=== PATIENT | female | born 2000 | race Caucasian/White ===

== ENCOUNTER 2024-06-21 07:57 | Emergency (ER) | payer BC, SELFPAY ==
[2024-06-21 07:58] VITALS: BP 145/107
--- NOTE | 2024-06-21 08:13 | ED.GENMED ---
History of Present Illness
<Nikolas Jordan PA-C - Last Filed: 06/21/24 14:58>
General
Chief Complaint: Withdrawal Symptoms
Source: patient
Exam Limitations: none
Time Seen by Provider: 06/21/24 08:06
History of Present Illness
History of Present Illness:
23-year-old female presents in possible alcohol withdrawal. She states she is very agitated to getting the shakes she is not sleeping she getting confused. She was drinking up to a handle of vodka every 2 days. Last drink was more than 24 hours
ago. She admits to occasional using marijuana as well. She is interested in getting help with her withdrawal. She is not sure about going to rehab. Recently saw a psychiatrist who started on naltrexone which her first dose was last night as well
as Lexapro.
Phy Exam
<Nikolas Jordan PA-C - Last Filed: 06/21/24 14:58>
Physical Exam
Physical Exam:
General: Well-appearing female no acute respiratory distress
HEENT: Normocephalic mucosa moist neck is supple
Heart: Regular rate and rhythm
Lungs: Clear no wheeze
Neurologic exam: Alert and oriented mild tremor noted good muscle tone conversing appropriately
Abdomen is soft nontender nondistended
Course
<Nikolas Jordan PA-C - Last Filed: 06/21/24 14:58>
Orders/Labs/Results
Orders:
Orders
06/21/24 08:03
Crisis Consult Urgent
Reason for Consult: SI, increased depression
06/21/24 08:12
0.9% Sodium Chloride 1000 ml [Nss] 1,000 ml IV BOLUS
Lorazepam [Ativan] 1 mg IV NOW STA
06/21/24 08:28
Alcohol Urgent
Complete Blood Count/With Diff Urgent
Comprehensive Metabolic Panel Urgent
Abnormal Lab Results
06/21/24
08:28
RBC 3.76 L 10^6/uL
(4.20-5.40)
MCV 99.7 H fL
(81.0-99.0)
MCH 35.6 H pg
(27.0-31.0)
AST 69 H U/L
(14-36)
ALT 41 H U/L
(0-35)
06/21/24 08:28
06/21/24 08:28
Vital Signs
Initial and Last Documented VS:
Initial Vital Signs
Temp Pulse Resp BP Pulse Ox
98.4 F 82 18 145/107 97
06/21/24 07:58 06/21/24 07:58 06/21/24 07:58 06/21/24 07:58 06/21/24 07:58
Last Documented Vital Signs
Temp Pulse Resp BP Pulse Ox
98.4 F 62 16 114/94 94
06/21/24 07:58 06/21/24 10:45 06/21/24 10:45 06/21/24 10:00 06/21/24 10:45
<Hesham Spear, DO - Last Filed: 06/21/24 10:58>
Orders/Labs/Results
Orders:
Orders
06/21/24 08:03
Crisis Consult Urgent
Reason for Consult: SI, increased depression
06/21/24 08:12
0.9% Sodium Chloride 1000 ml [Nss] 1,000 ml IV BOLUS
Lorazepam [Ativan] 1 mg IV NOW STA
06/21/24 08:28
Alcohol Urgent
Complete Blood Count/With Diff Urgent
Comprehensive Metabolic Panel Urgent
Abnormal Lab Results
06/21/24
08:28
RBC 3.76 L 10^6/uL
(4.20-5.40)
MCV 99.7 H fL
(81.0-99.0)
MCH 35.6 H pg
(27.0-31.0)
AST 69 H U/L
(14-36)
ALT 41 H U/L
(0-35)
06/21/24 08:28
06/21/24 08:28
Vital Signs
Initial and Last Documented VS:
Initial Vital Signs
Temp Pulse Resp BP Pulse Ox
98.4 F 82 18 145/107 97
06/21/24 07:58 06/21/24 07:58 06/21/24 07:58 06/21/24 07:58 06/21/24 07:58
Last Documented Vital Signs
Temp Pulse Resp BP Pulse Ox
98.4 F 62 16 114/94 94
06/21/24 07:58 06/21/24 10:45 06/21/24 10:45 06/21/24 10:00 06/21/24 10:45
<Nikolas Jordan PA-C - Last Filed: 06/21/24 14:58>
MDM/Problems Addressed
Differential Diagnosis Includes:
Patient with recent heavy alcohol use. Last drink was more than 24 hours ago and may be developing withdrawal symptoms. Vital signs are currently stable but does appear quite agitated and anxious. She is slightly tremulous. Will check labs.
Hydrate and give Ativan. Parents are in the room. Offered her help through [facility] [place] however she is not sure she wants to get
<Nikolas Jordan PA-C - Last Filed: 06/21/24 14:58>
*Critical Care Note
Total Time (30-74mins, 75-104mins- exclusive of procedures): Not Applicable
ED Attending Note
<Nikolas Jordan PA-C - Last Filed: 06/21/24 14:58>
-
Portions of this chart may have been created with voice recognition software.� Occasional wrong word or��sound alike� substitutions may have occurred due to the inherent limitations of voice recognition software.
<Hesham Spear DO - Last Filed: 06/21/24 10:58>
ED Attending Note
Patient seen and examined by attending physician: Yes
I performed the substantive portion of visit, reviewed & personally made and approve the management plan that is documented in note by myself or MESFIN.: Yes
ED Attending Note:
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
encouraged not to drink alcohol while using naltrexone she has a psychiatrist in [place], patient and mother asking about prescription for Ativan which seems to work for her here
Discharge Plan
Departure
Patient Disposition: Home (Routine Discharge)
Date of Disposition: 06/21/24
Time of Disposition: 10:59
Patient with high blood pressure during this ER visit?: No
Condition: Good
Covid-19: Not Applicable
Discharge Problem:
Alcohol abuse
Instructions: Alcohol Use Disorder (DC)
Prescriptions:
New
lorazepam [Ativan] 0.5 mg tablet
0.5 mg PO HS PRN (Reason: anxiety) Qty: 10 0RF
Referrals:
Dariana Lowe DO [Family Provider] -
Activity Restrictions/Additional Instructions:
Do not drink alcohol while taking naltrexone
Take your medications as prescribed by your psychiatrist
Interventions
Interventions:
*Risk Screen - Suicide Last Done: 06/21/24 07:58
*General Assessment Last Done: 06/21/24 07:58
*Neglect/Abuse Screening Last Done: 06/21/24 07:58
ED- Fall Risk Assessment Last Done: 06/21/24 08:23
*ED COVID-19 Vaccine History Last Done: 06/21/24 08:23
*Nursing Disposition Last Done: 06/21/24 11:04
ED- Neurological Assessment Last Done: 06/21/24 08:23
ED-Psychological Assessment Last Done: 06/21/24 08:23
Discharge Date and Time
Discharge Date/Time: 06/21/24 11:08
Print Language: [facility]
[2024-06-21 08:21] VITALS: BMI 21.4
[2024-06-21 08:23] VITALS: BP 126/94
[2024-06-21] MEDS: ATIVAN 1 MG IV (08:28)
[2024-06-21] MEDS: NSS 1000 IV (08:30)
[2024-06-21 08:37] LABS: % Basophils 0.9 % (0-2); % Eosinophils 0.7 % (0-6); % Immature Granulocytes 0.4 % (0-0.5); % Lymphocytes 36.2 % (20.5-51.1); % Monocytes 6.9 % (1.7-9.3); % Neutrophils 54.9 % (42.2-75.2); Absolute Basophils 0.1 10^3/uL (0-0.2); Absolute Lymphocytes 2.1 10^3/uL (1.2-3.4); Absolute Monocytes 0.4 10^3/uL (0.1-0.6); Absolute Neutrophils 3.1 10^3/uL (1.4-6.5); Hematocrit 37.5 % (37.0-47.0); Hemoglobin 13.4 g/dL (12.0-16.0); Mean Corp Hgb Conc. 35.7 g/dL (33.0-37.0); Mean Corpuscular Hgb 35.6 pg (27.0-31.0); Mean Corpuscular Volume 99.7 fL (81.0-99.0); Mean Platelet Volume 9.8 fL (7.4-10.4); Nucleated Red Blood Cells % 0 %; Platelet Count 147 10^3/uL (130-400); Red Blood Cell Count 3.76 10^6/uL (4.20-5.40); Red Cell Dist. Width 12.6 % (11.5-14.5); White Blood Cell Count 5.7 10^3/uL (4.8-10.8)
[2024-06-21 09:00] VITALS: BP 120/98
[2024-06-21 09:05] LABS: ALT (SGPT) 41 U/L (0-35); AST (SGOT) 69 U/L (14-36); Albumin 4.5 g/dl (3.5-5.0); Alkaline Phosphatase 41 U/L (38-126); Blood Urea Nitrogen 9 mg/dl (7-17); Calcium 9.3 mg/dl (8.4-10.2); Carbon Dioxide 24 mmol/L (22-30); Chloride 99 mmol/L (98-107); Estimated Creatinine Clearance > 125 ml/min; Glucose 88 mg/dl (70-99); Sodium 135 mmol/L (135-145); Total Protein 7.1 g/dl (6.3-8.2); eGFR > 60.00
[2024-06-21 09:06] LABS: Alcohol None Detected
[2024-06-21 10:00] VITALS: BP 114/94
== END 2024-06-21 11:08 | disposition home or self-care (01) ==
LOC: EMR 07:57
PROVIDERS: Physician Assistant; EMERGENCY PHYSICIAN Emergency Medicine; FAMILY PHYSICIAN Family Medicine
DX: F10.10 Alcohol abuse, uncomplicated (principal); R45.1 Restlessness and agitation; R25.1 Tremor, unspecified; R00.2 Palpitations; R41.0 Disorientation, unspecified; F32.A Depression, unspecified
CPT/HCPCS: 99284; 96374; 96361; 80053; 82077; 85025